=== PATIENT | male | born 1965 | race Caucasian/White ===

== ENCOUNTER 2019-03-31 20:20 | Emergency (ER) | payer BC ==
[~2019-03-31] VITALS: Ht 177.8 cm; Wt 154.6 kg
[~2019-03-31 20:20] MED LIST: FLO0.4C PO; ZES10T PO; ZOF4T PO
[2019-03-31] MEDS ORDERED: lisinopril 10 MG tablet PO ONE (20:45)
[2019-03-31 21:01] LABS: BASOPHILS # (AUTO) 0.1 X10'3 (0-0.2); BASOPHILS % (AUTO) 0.6 % (0-1); EOSINOPHILS # (AUTO) 0.1 X10'3 (0-0.9); EOSINOPHILS % (AUTO) 0.9 % (0-6); HEMATOCRIT 52.9 % (42.0-52.0); HEMOGLOBIN 17.3 g/dl (14.0-17.9); MEAN CORPUSCULAR HEMOGLOBIN 28.3 PG (27.0-31.0); MEAN CORPUSCULAR HGB CONC 32.7 g/dL (33.0-36.5); MEAN CORPUSCULAR VOLUME 86.6 FL (78-98); MEAN PLATELET VOLUME 8.1 FL (7.4-10.4); MONOCYTES # (AUTO) 0.7 X10'3 (0-0.9); MONOCYTES % (AUTO) 5.8 % (2-12); NEUTROPHILS # (AUTO) 8.9 X10'3 (1.8-7.7); NEUTROPHILS % (AUTO) 75.7 % (42-75); PLATELET COUNT 271 X10'3 (140-440); RED CELL DISTRIBUTION WIDTH 15.8 % (11.5-14.5); WHITE BLOOD COUNT 11.8 X10'3 (4.5-11.0)
[2019-03-31 21:13] LABS: ALANINE AMINOTRANSFERASE 58 U/L (12-78); ALBUMIN 3.8 G/DL (3.4-5.0); ALKALINE PHOSPHATASE 84 IU/L (46-116); ANION GAP 9 (8-16); ASPARTATE AMINO TRANSFERASE 37 U/L (10-37); BILIRUBIN,TOTAL 0.5 MG/DL (0.1-1.0); CHLORIDE 108 MMOL/L (99-107); POTASSIUM 4.2 MMOL/L (3.5-5.1); SODIUM 142 MMOL/L (135-145); TOTAL CARBON DIOXIDE 24.7 MMOL/L (24-32); TOTAL PROTEIN 7.8 G/DL (6.4-8.2)
[2019-03-31 21:20] LABS: BLOOD UREA NITROGEN 16 MG/DL (7-18); BUN/CREATININE RATIO 16.3 (5.4-32.0); CALCIUM 9.1 MG/DL (8.5-10.1); CREATININE 0.98 MG/DL (0.60-1.10); GLUCOSE 114 MG/DL (70-104); eGFR 81 ML/MIN
--- NOTE | 2019-03-31 21:26 | NUR ---
SO HAS RELEASED THE PATIENT FROM THEIR CUSTODY. PT IS STILL AWAITING LAB RESULTS AND REMAINS IN THE ROOM AT THIS TIME.
[2019-03-31 21:47] VITALS: BP 167/109
--- NOTE | 2019-03-31 21:48 | NUR ---
PT HAS BEEN RELEASED FROM [employer]
== END 2019-03-31 22:17 | disposition home or self-care (01) ==
LOC: ER 20:21
DX: I10 Essential (primary) hypertension (principal); F32.9 Major depressive disorder, single episode, unspecified; E66.01 Morbid (severe) obesity due to excess calories; F15.90 Other stimulant use, unspecified, uncomplicated; Z68.42 Body mass index [BMI] 45.0-49.9, adult; Z98.890 Other specified postprocedural states; Z79.899 Other long term (current) drug therapy
CPT/HCPCS: 36415; 80053; 84484; 85025; 93005; 99284

== ENCOUNTER 2020-04-27 12:17 | Inpatient (IN) | payer BC ==
[~2020-04-27] VITALS: Ht 177.8 cm; Wt 175.0 kg
[2020-04-27] MEDS ORDERED: iohexol 350MG/ML 100ml bottle IV ONE (12:25)
[2020-04-27 13:31] LABS: BASOPHILS % (AUTO) 0.2 % (0-1); EOSINOPHILS % (AUTO) 0 % (0-6); HEMATOCRIT 48.1 % (42.0-52.0); HEMOGLOBIN 15.4 g/dl (14.0-17.9); LYMPHOCYTES # (AUTO) 1.2 X10'3 (1.1-4.8); LYMPHOCYTES % (AUTO) 7.5 % (21-51); MEAN CORPUSCULAR HEMOGLOBIN 28.8 PG (27.0-31.0); MEAN CORPUSCULAR VOLUME 90.1 FL (78-98); MEAN PLATELET VOLUME 7.9 FL (7.4-10.4); MONOCYTES # (AUTO) 0.8 X10'3 (0-0.9); MONOCYTES % (AUTO) 4.8 % (2-12); NEUTROPHILS # (AUTO) 13.7 X10'3 (1.8-7.7); NEUTROPHILS % (AUTO) 87.5 % (42-75); PLATELET COUNT 230 X10'3 (140-440); RED BLOOD COUNT 5.34 X10'6 (4.70-6.10); RED CELL DISTRIBUTION WIDTH 15.7 % (11.5-14.5); WHITE BLOOD COUNT 15.6 X10'3 (4.5-11.0)
[2020-04-27 13:44] LABS: PARTIAL THROMBOPLASTIN TIME 28 SECONDS (22-32)
[2020-04-27] MEDS ORDERED: normal saline 1000ml 1,000 ML IV ONE (13:45)
[2020-04-27 14:10] LABS: ALANINE AMINOTRANSFERASE 107 U/L (12-78); ALBUMIN 3.4 G/DL (3.4-5.0); ALBUMIN/GLOBULIN RATIO 0.9 (1.1-1.5); ALKALINE PHOSPHATASE 70 IU/L (46-116); ANION GAP 6 (8-16); ASPARTATE AMINO TRANSFERASE 106 U/L (10-37); BILIRUBIN,TOTAL 0.3 MG/DL (0.1-1.0); BLOOD UREA NITROGEN 19 MG/DL (7-18); BUN/CREATININE RATIO 14.6 (5.4-32.0); CALCIUM 8.3 MG/DL (8.5-10.1); CHLORIDE 106 MMOL/L (99-107); GLUCOSE 107 MG/DL (70-104); POTASSIUM 4.5 MMOL/L (3.5-5.1); SODIUM 142 MMOL/L (135-145); TOTAL CARBON DIOXIDE 29.7 MMOL/L (24-32); eGFR 58 ML/MIN
[2020-04-27] MEDS ORDERED: aspirin 325mg tablet PO ONE (14:25)
[2020-04-27] MEDS ORDERED: labetalol 20mg/4ml (5mg/ml) syringe IV PRN (14:35)
[2020-04-27] MEDS ORDERED: LISI-600 PO (15:13)
[2020-04-27] MEDS ORDERED: FLO0.4C PO (15:13)
--- NOTE | 2020-04-27 16:19 | NUR ---
Pt has a urinal and is sitting upright on the side of the gurney to attempt to void.
[2020-04-27 17:08] LABS: CLARITY,URINE SLIGHTLY CLOUDY (Clear); COLOR,URINE YELLOW (Yellow); GLUCOSE, URINE NEGATIVE (Neg); KETONES,URINE NEGATIVE (Neg); LEUKOCYTE ESTERASE ,URINE NEGATIVE (Neg); NITRITES, URINE NEGATIVE (Neg); OCCULT BLOOD,URINE TRACE-LYSED (Neg); PH,URINE 5.5 (4.8-8.0); PROTEIN,URINE 30 mg/dl (Neg); UROBILINOGEN,URINE 0.2 E.U/dL (0.2-1.0)
[2020-04-27 17:18] LABS: UA COLLECTION TYPE CLN CATCH MIDSTREAM
[2020-04-27 17:20] LABS: SQUAMOUS EPITHELIAL CELL,UR FEW /LPF (FEW)
[2020-04-27 17:22] LABS: BACTERIA,URINE FEW /HPF (Neg)
[2020-04-27 17:23] LABS: RBC,URINE 0-2 /HPF (0-2); WBC,URINE 0-4 /HPF (0-4)
--- NOTE | 2020-04-27 17:55 | NUR ---
Report from Elise WEBBER
--- NOTE | 2020-04-27 18:17 | NUR ---
MESSAGE: [id number] Antonio Prasad Patient is here with current BP 178/102 HR Tamika [id number]
[2020-04-27] MEDS ORDERED: hydrALAZINE 20mg/ml inj. IV ONE (18:25)
[2020-04-27] MEDS ORDERED: normal saline 1000ml 1,000 ML IV SCH (18:28)
[2020-04-27 18:30] VITALS: BP 178/102
[2020-04-27] MEDS ORDERED: morphine 2 MG/ML inj. syringe IV PRN ×2 (18:30)
[2020-04-27] MEDS ORDERED: magnesium hydroxide 30ml (MOM) UD suspension PO PRN (18:30)
[2020-04-27] MEDS ORDERED: magnesium Cl slow-release 64mg tablet PO PRN (18:30)
[2020-04-27] MEDS ORDERED: acetaminophen 650mg rectal suppository RC PRN (18:30)
[2020-04-27] MEDS ORDERED: bisacodyl 10mg suppository rectal RC PRN (18:30)
[2020-04-27] MEDS ORDERED: magnesium 4gm in 100ml NS 100 ML IV PRN (18:30)
[2020-04-27] MEDS ORDERED: ondansetron/PF 4mg/2ml inj IV PRN (18:30)
[2020-04-27] MEDS ORDERED: potassium CL 10mEq/100ml bag 100 ML IV PRN ×2 (18:30)
[2020-04-27] MEDS ORDERED: diphenhydrAMINE 25mg capsule PO PRN (18:30)
[2020-04-27] MEDS ORDERED: acetaminophen 325mg tablet PO PRN ×2 (18:30)
[2020-04-27] MEDS ORDERED: potassium Cl 20 mEq SR tablet PO PRN ×2 (18:30)
[2020-04-27] MEDS ORDERED: HYDROcodone/acetaminophen 10/325mg tab PO PRN (18:30)
[2020-04-27] MEDS ORDERED: mag hydrox/Alum hydrox/simeth 30ml oral suspension PO PRN (18:30)
[2020-04-27] MEDS ORDERED: magnesium 2GM in 50ml NS 50 ML IV PRN (18:30)
--- NOTE | 2020-04-27 18:54 | NUR ---
Problems reprioritized. Patient report given, questions answered & plan of care reviewed with Vaughn WEBBER.
[2020-04-27 19:39] LABS: CHOL/HDL RATIO 3.7 (0.00-4.99); CHOLESTEROL 142 MG/DL (0-200); HDL CHOLESTEROL 38 MG/DL (35-60); LDL CHOLESTEROL 97 MG/DL (50-100); TRIGLYCERIDES 62 MG/DL (20-135)
[2020-04-27] MEDS: heparin, porcine 5000 units/ml vial SQ SCH (19:42)
[2020-04-27] MEDS: atorvastatin 20mg tablet PO SCH (19:43)
[2020-04-27] MEDS: K and/or MAG REPLACEMENT MC SCH (20:00)
[2020-04-27 20:07] LABS: HEMOGLOBIN A1C 6.3 % (4.5-6.2)
[2020-04-27 21:00] VITALS: BP 189/98
[2020-04-27] MEDS: tamsulosin 0.4mg capsule PO SCH (21:30)
[2020-04-27 21:40] VITALS: BP 185/101
[2020-04-28] VITALS (8 sets, daily range): BP systolic 119–199; BP diastolic 67–110
[2020-04-28 00:06] LABS: ABG BASE EXCESS 1.3 mmol/L (-2.0-2.0); ABG HCO3 28.4 mmol/L (22.0-26.0); ABG OXYGEN SATURATION 93.5 % (94-97); ABG PCO2 (T) 53.7 mmHg (35.0-48.0); ABG PO2 (T) 65.8 mmHg (75.0-100.0); ALLEN'S TEST POSITIVE; FCOHb 0.8 % (0.0-3.9); FLOW 2 L/min; FMetHb 0.1 % (0.0-1.5); FO2Hb 92.7 % (94-97); PATIENT TEMPERATURE 36.8; TOTAL HEMOGLOBIN 15.4 G/dl (14.0-18.0)
[2020-04-28] MEDS: hydrALAZINE 20mg/ml inj. IV PRN (02:01)
[2020-04-28] MEDS: HYDROcodone/acetaminophen 5mg/325mg tablet PO PRN (02:40)
--- NOTE | 2020-04-28 04:00 | NUR ---
noted blood pressure continues to be elevated. called Dr. Mullins for further orders. orders received for po metoprolol x1 and d/c IVF at this time. pt reports that left arm numbness is improving. received norco for headache as well.
[2020-04-28 04:05] LABS: CLARITY,URINE CLEAR (Clear); COLOR,URINE YELLOW (Yellow); GLUCOSE, URINE NEGATIVE (Neg); KETONES,URINE NEGATIVE (Neg); LEUKOCYTE ESTERASE ,URINE NEGATIVE (Neg); NITRITES, URINE NEGATIVE (Neg); OCCULT BLOOD,URINE NEGATIVE (Neg); PH,URINE 5.5 (4.8-8.0); PROTEIN,URINE TRACE mg/dl (Neg); UROBILINOGEN,URINE 0.2 E.U/dL (0.2-1.0)
[2020-04-28 04:07] LABS: UA COLLECTION TYPE FOLEY CATH
[2020-04-28 04:16] LABS: URINE AMPHETAMINE SCREEN POSITIVE (Neg); URINE BARBITUATE SCREEN NEGATIVE (Neg); URINE BENZODIAZEPINES SCREEN NEGATIVE (Neg); URINE CANNABINOID SCREEN NEGATIVE (Neg); URINE COCAINE SCREEN NEGATIVE (Neg); URINE METHADONE SCREEN NEGATIVE (Neg); URINE OPIATE SCREEN NEGATIVE (Neg); URINE PHENCYCLIDINE SCREEN NEGATIVE (Neg)
[2020-04-28 04:26] LABS: RBC,URINE NONE SEEN /HPF (0-2); WBC,URINE 0-4 /HPF (0-4)
[2020-04-28 04:27] LABS: BACTERIA,URINE NONE SEEN /HPF (Neg); SQUAMOUS EPITHELIAL CELL,UR FEW /LPF (FEW)
[2020-04-28] MEDS ORDERED: metoprolol tartrate 25mg tablet PO ONE (04:35)
--- NOTE | 2020-04-28 06:39 | NUR ---
Problems reprioritized. Patient report given, questions answered & plan of care reviewed with Suzi WEBBER.
[2020-04-28] MEDS: K and/or MAG REPLACEMENT MC SCH ×2 (08:00→20:00)
[2020-04-28] MEDS ORDERED: aspirin 81mg tablet.DR PO SCH (08:00)
[2020-04-28] MEDS: lisinopril 20mg tablet PO SCH (09:09)
[2020-04-28] MEDS: heparin, porcine 5000 units/ml vial SQ SCH ×2 (09:10→20:16)
[2020-04-28] MEDS: atorvastatin 20mg tablet PO SCH (09:10)
[2020-04-28] MEDS: metoprolol succinate 25mg (24-HOUR) SR. Tablet PO SCH (10:48)
[2020-04-28] MEDS: amLODIPine 5mg tablet PO SCH (10:49)
[2020-04-28 11:58] LABS: BASOPHILS % (AUTO) 0.3 % (0-1); EOSINOPHILS # (AUTO) 0.1 X10'3 (0-0.9); EOSINOPHILS % (AUTO) 0.6 % (0-6); HEMATOCRIT 48.3 % (42.0-52.0); HEMOGLOBIN 15.7 g/dl (14.0-17.9); LYMPHOCYTES % (AUTO) 14.6 % (21-51); MEAN CORPUSCULAR HEMOGLOBIN 29.1 PG (27.0-31.0); MEAN CORPUSCULAR HGB CONC 32.5 g/dL (33.0-36.5); MEAN CORPUSCULAR VOLUME 89.5 FL (78-98); MEAN PLATELET VOLUME 7.8 FL (7.4-10.4); MONOCYTES # (AUTO) 0.8 X10'3 (0-0.9); MONOCYTES % (AUTO) 5.8 % (2-12); NEUTROPHILS # (AUTO) 10.8 X10'3 (1.8-7.7); NEUTROPHILS % (AUTO) 78.7 % (42-75); PLATELET COUNT 241 X10'3 (140-440); RED BLOOD COUNT 5.39 X10'6 (4.70-6.10); RED CELL DISTRIBUTION WIDTH 15.8 % (11.5-14.5); WHITE BLOOD COUNT 13.7 X10'3 (4.5-11.0)
[2020-04-28 12:19] LABS: ALANINE AMINOTRANSFERASE 98 U/L (12-78); ALBUMIN 3.8 G/DL (3.4-5.0); ALKALINE PHOSPHATASE 74 IU/L (46-116); ANION GAP 5 (8-16); ASPARTATE AMINO TRANSFERASE 78 U/L (10-37); BILIRUBIN,TOTAL 0.5 MG/DL (0.1-1.0); BLOOD UREA NITROGEN 16 MG/DL (7-18); BUN/CREATININE RATIO 15.5 (5.4-32.0); CHLORIDE 103 MMOL/L (99-107); CREATININE 1.03 MG/DL (0.60-1.10); ETHANOL < 0.010 GM/DL (0.0-0.010); GLUCOSE 113 MG/DL (70-104); MAGNESIUM 2.3 MG/DL (1.5-2.4); PHOSPHORUS 2.9 MG/DL (2.3-4.5); POTASSIUM 4.1 MMOL/L (3.5-5.1); SODIUM 138 MMOL/L (135-145); TOTAL PROTEIN 7.6 G/DL (6.4-8.2); eGFR 76 ML/MIN
--- NOTE | 2020-04-28 12:21 | NUR ---
DM consult re: "No diabetes hx". Pt with A1c of 6.3%, this does not meet diagnostic criteria for diabetes per the [place] [employer]. DM education not warranted at this time. Will continue to follow. Addendum: 04/28/20 at [address] Amended: Links added.
--- NOTE | 2020-04-28 18:00 | NUR ---
Patient in room [facility]TH[facility] 4010. I have received report from Suzi WEBBER and had the opportunity to ask questions and assume patient care.
[2020-04-28] MEDS: tamsulosin 0.4mg capsule PO SCH (20:16)
[2020-04-29] MEDS: HYDROcodone/acetaminophen 5mg/325mg tablet PO PRN (00:09)
[2020-04-29 02:00] VITALS: BP 174/81
[2020-04-29] MEDS: hydrALAZINE 20mg/ml inj. IV PRN (04:52)
[2020-04-29 04:53] VITALS: BP 171/106
[2020-04-29 05:48] VITALS: BP 179/103
[2020-04-29 06:27] LABS: BASOPHILS % (AUTO) 0.4 % (0-1); EOSINOPHILS # (AUTO) 0.1 X10'3 (0-0.9); EOSINOPHILS % (AUTO) 1.1 % (0-6); HEMATOCRIT 46.1 % (42.0-52.0); HEMOGLOBIN 15.1 g/dl (14.0-17.9); LYMPHOCYTES # (AUTO) 2.5 X10'3 (1.1-4.8); LYMPHOCYTES % (AUTO) 20.7 % (21-51); MEAN CORPUSCULAR HGB CONC 32.7 g/dL (33.0-36.5); MEAN CORPUSCULAR VOLUME 88.8 FL (78-98); MEAN PLATELET VOLUME 8.3 FL (7.4-10.4); MONOCYTES # (AUTO) 0.8 X10'3 (0-0.9); MONOCYTES % (AUTO) 6.4 % (2-12); NEUTROPHILS # (AUTO) 8.7 X10'3 (1.8-7.7); NEUTROPHILS % (AUTO) 71.4 % (42-75); PLATELET COUNT 230 X10'3 (140-440); RED BLOOD COUNT 5.19 X10'6 (4.70-6.10); RED CELL DISTRIBUTION WIDTH 15.2 % (11.5-14.5); WHITE BLOOD COUNT 12.2 X10'3 (4.5-11.0)
--- NOTE | 2020-04-29 06:28 | NUR ---
Problems reprioritized. Patient report given, questions answered & plan of care reviewed with Tamika WEBBER.
[2020-04-29 06:37] LABS: ALANINE AMINOTRANSFERASE 107 U/L (12-78); ALBUMIN 3.4 G/DL (3.4-5.0); ALKALINE PHOSPHATASE 72 IU/L (46-116); ANION GAP 6 (8-16); ASPARTATE AMINO TRANSFERASE 73 U/L (10-37); BILIRUBIN,TOTAL 0.5 MG/DL (0.1-1.0); BLOOD UREA NITROGEN 16 MG/DL (7-18); BUN/CREATININE RATIO 17.8 (5.4-32.0); CALCIUM 8.5 MG/DL (8.5-10.1); CHLORIDE 103 MMOL/L (99-107); GLUCOSE 122 MG/DL (70-104); MAGNESIUM 1.9 MG/DL (1.5-2.4); PHOSPHORUS 2.7 MG/DL (2.3-4.5); SODIUM 137 MMOL/L (135-145); TOTAL CARBON DIOXIDE 27.7 MMOL/L (24-32); TOTAL PROTEIN 6.9 G/DL (6.4-8.2); eGFR 89 ML/MIN
--- NOTE | 2020-04-29 06:37 | NUR ---
Patient wanted shower, stated he was leaving after. Educated him on his BP and the reasons to stay.
[2020-04-29 06:38] LABS: POTASSIUM 3.9 MMOL/L (3.5-5.1)
--- NOTE | 2020-04-29 06:40 | NUR ---
PAGER ID: [phone] MESSAGE: [phone] Darrian Prasad Patient is in the shower, and stated he is leaving after. I told him is would be PABLO Lundberg [id number]
--- NOTE | 2020-04-29 06:47 | NUR ---
Blood Pressure noted will give AM BP medications early. Addendum: 04/29/20 at 0647 by Tamika Norton RN Amended: Links added.
[2020-04-29 07:00] VITALS: BP 159/82
[2020-04-29] MEDS: metoprolol succinate 25mg (24-HOUR) SR. Tablet PO SCH (07:04)
[2020-04-29] MEDS: amLODIPine 5mg tablet PO SCH (07:04)
[2020-04-29 07:05] VITALS: BP_SYST 154
[2020-04-29] MEDS: lisinopril 20mg tablet PO SCH (07:05)
--- NOTE | 2020-04-29 07:13 | NUR ---
Patient left AMA, educated he would have a repeat CT which would show if he did possible have a stroke still wanted to go his ride was here. Rechecked his BP 159/84 HR 82, gave his AM BP MEDS that were scheduled. educated him to get a BP machine to check it, educated about S/S of stroke and wrote down the medications given prior to leaving. IV taken out cannula intact, tolerated well. Wheeled out by hemodialysis charge nurse.
--- NOTE | 2020-04-29 07:21 | NUR ---
refused Addendum: 04/29/20 at 0736 by Tamika Norton RN Amended: Links added.
== END 2020-04-29 07:15 | disposition left against medical advice (07) | DRG 305 ==
LOC: ER 12:18 → ORTHO 4S 17:01 → UNDOADMIN 17:01 → ORTHO 4S 18:28
PROVIDERS: ADMIT Family Medicine; ATTEND Family Medicine
PROC: B3251ZZ Computerized Tomography (CT Scan) of Bilateral Common Carotid Arteries using Low Osmolar Contrast (ICD-10-PCS; principal; 2020-04-27)
PROC: B32G1ZZ Computerized Tomography (CT Scan) of Bilateral Vertebral Arteries using Low Osmolar Contrast (ICD-10-PCS; 2020-04-27)
PROC: B3281ZZ Computerized Tomography (CT Scan) of Bilateral Internal Carotid Arteries using Low Osmolar Contrast (ICD-10-PCS; 2020-04-27)
DX: I16.1 Hypertensive emergency (principal); E66.2 Morbid (severe) obesity with alveolar hypoventilation; G93.40 Encephalopathy, unspecified; N17.9 Acute kidney failure, unspecified; Z68.43 Body mass index [BMI] 50.0-59.9, adult; E87.2 Acidosis; E86.0 Dehydration; D72.829 Elevated white blood cell count, unspecified; Z60.2 Problems related to living alone; E78.5 Hyperlipidemia, unspecified; F12.90 Cannabis use, unspecified, uncomplicated; F17.210 Nicotine dependence, cigarettes, uncomplicated; F15.10 Other stimulant abuse, uncomplicated; F32.9 Major depressive disorder, single episode, unspecified; I10 Essential (primary) hypertension; R73.03 Prediabetes; N40.0 Benign prostatic hyperplasia without lower urinary tract symptoms; Z79.82 Long term (current) use of aspirin; Z79.899 Other long term (current) drug therapy; Z91.19 Patient's noncompliance with other medical treatment and regimen
CPT/HCPCS: 36415; 36600; 70450; 70496; 70498; 71045; 80053; 80061; 80305; 80320; 81001; 82803; 82948; 83036; 83735; 84100; 85018; 85025; 85610; 85651; 85730; 86885; 86900; 86901; 87081; 92508; 92616; 93005; 93306; 93880; 96361; 96374; 97161; 97530; 99285; G0378; J0360; J1644; J2405; J3490; J7030; Q9967

== ENCOUNTER 2021-04-13 18:05 | Emergency (ER) | payer BC ==
[~2021-04-13] VITALS: Ht 175.3 cm; Wt 177.3 kg
[~2021-04-13 18:05] MED LIST changes: +LISI20TA28 PO; -ZES10T PO; -ZOF4T PO
[2021-04-13 19:45] VITALS: BP 237/132
[2021-04-13] MEDS ORDERED: ondansetron 4mg rapidly disintigrating tab PO ONE (20:15)
[2021-04-13] MEDS ORDERED: HYDROcodone/acetaminophen 5mg/325mg tablet PO ONE (20:15)
== END 2021-04-13 20:24 | disposition home or self-care (01) ==
LOC: ER 18:05
DX: S63.502A Unspecified sprain of left wrist, initial encounter (principal); I10 Essential (primary) hypertension; F15.90 Other stimulant use, unspecified, uncomplicated; Z98.890 Other specified postprocedural states; Z79.899 Other long term (current) drug therapy; X58.XXXA Exposure to other specified factors, initial encounter; Y93.89 Activity, other specified; Y92.89 Other specified places as the place of occurrence of the external cause; Y99.8 Other external cause status
CPT/HCPCS: 29125; 73110; 73130; 99284